=== PATIENT | male | born 1950 | race Caucasian/White ===

== ENCOUNTER 2019-06-29 19:11 | Emergency (ER) | payer MEDICARE ==
[2019-06-29] MEDS ORDERED: methylPREDNISolone SOD SUCCI 125 MG/2 ML VIAL IV STA (19:30)
[2019-06-29] MEDS ORDERED: FAMOTIDINE 20 MG/2 ML VIAL IV STA (19:30)
[2019-06-29 19:43] VITALS: RESP 18
[2019-06-29 20:40] VITALS: BP 128/82; PULSE 73
--- NOTE | 2019-06-29 20:47 | ED ---
Allergic Reaction HPI - General Chief complaint: Allergic Reaction Stated complaint: allergic reaction Time Seen by Provider: 06/29/19 19:15 Source: patient, EMS, RN notes reviewed Mode of arrival: EMS - History of Present Illness Initial Comments: This is a 69-year-old male history of ALLERGIC reaction past who does have an EpiPen states he had the sudden onset tonight of itchy palms and swelling of his tongue and pharynx. He was given IV medication and route by EMS personnel. He states he still feeling somewhat better already no shortness breath no chest pain no other modifying factors at this time is not sure what he was in the came in contact with. Is identical to previous reactions however. He was in the past on lisinopril which was thought to be a source of this reaction is been off of it for one year. MD Complaint: allergic reaction - Related Data Home Medications Medication Instructions Recorded Confirmed Apalutamide [Erleada] 60 mg PO QID 06/29/19 06/29/19 Ascorbic Acid [Vitamin C] 500 mg PO DAILY 06/29/19 06/29/19 Aspirin EC [Ecotrin Low Dose] 81 mg PO DAILY 06/29/19 06/29/19 Atorvastatin [Lipitor] 40 mg PO HS 06/29/19 06/29/19 Eligar Unknown Dose 1 dose SQ Q90D 06/29/19 06/29/19 Finasteride [Proscar] 5 mg PO DAILY 06/29/19 06/29/19 Omeprazole 20 mg PO BID 06/29/19 06/29/19 Oxybutynin Chloride [Ditropan] 5 mg PO TID 06/29/19 06/29/19 Tamsulosin [Flomax] 0.4 mg PO HS 06/29/19 06/29/19 Ubidecarenone [Co Q-10] 100 mg PO DAILY 06/29/19 06/29/19 Zinc 50 mg PO DAILY 06/29/19 06/29/19 amLODIPine [Norvasc] 2.5 mg PO DAILY 06/29/19 06/29/19 metFORMIN HCL 1,000 mg PO BID 06/29/19 06/29/19 Previous Rx's Medication Instructions Recorded Famotidine [Pepcid] 20 mg PO BID #10 tablet 06/29/19 methylPREDNISolone Dose Pack 4 mg PO DIRECTED #21 package 06/29/19 [Medrol Dose Pack] Allergies Allergy/AdvReac Type Severity Reaction Status Date / Time lisinopril Allergy Anaphylaxis Verified 06/29/19 19:42 Review of Systems ROS Statement: Those systems with pertinent positive or pertinent negative responses have been documented in the HPI. ROS Other: All systems not noted in ROS Statement are negative. Past Medical History Past Medical History: Diabetes Mellitus, Hypertension History of Any Multi-Drug Resistant Organisms: None Reported Past Surgical History: Tonsillectomy Past Psychological History: No Psychological Hx Reported Smoking Status: Never smoker Past Alcohol Use History: Occasional Past Drug Use History: None Reported General Exam - General Exam Comments Initial Comments: This is a well-developed well-nourished awake alert oriented 3 male General appearance: alert, anxious Head exam: Present: atraumatic, normocephalic, normal inspection Eye exam: Present: normal appearance, PERRL, EOMI. Absent: scleral icterus, conjunctival injection, periorbital swelling ENT exam: Present: mucous membranes moist, other (Edema noted of the tongue and hyperemia posterior pharynx.) Neck exam: Present: normal inspection, full ROM, other (No stridor JVD or bruits). Absent: tenderness, meningismus, lymphadenopathy Respiratory exam: Present: normal lung sounds bilaterally. Absent: respiratory distress, wheezes, rales, rhonchi, stridor Cardiovascular Exam: Present: regular rate, normal rhythm, normal heart sounds. Absent: systolic murmur, diastolic murmur, rubs, gallop, clicks GI/Abdominal exam: Present: soft, normal bowel sounds. Absent: distended, tenderness, guarding, rebound, rigid Extremities exam: Present: normal inspection, full ROM, normal capillary refill. Absent: tenderness, pedal edema, joint swelling, calf tenderness Back exam: Present: normal inspection Neurological exam: Present: alert, oriented X3, CN II-XII intact Psychiatric exam: Present: normal affect, normal mood Skin exam: Present: warm, dry, intact, normal color. Absent: rash Course Vital Signs 06/29/19 06/29/19 06/29/19 19:11 19:17 19:41 Temperature 97.8 F Pulse Rate 84 75 Respiratory 18 87 H 18 Rate Blood Pressure 148/97 145/95 O2 Sat by Pulse 95 96 Oximetry 06/29/19 20:40 Temperature Pulse Rate 73 Respiratory 18 Rate Blood Pressure 128/82 O2 Sat by Pulse 98 Oximetry - Reevaluation(s) Reevaluation #1: 06/29/19 20:47 Reevaluation the patient reveals he is getting improvement Medical Decision Making - Medical Decision Making Patient is improved and went to be discharged. He will be discharged on appropriate medication he does have a functional and up-to-date EpiPen. We placed on appropriate medication is a follow-up with his doctor and return when necessary Disposition Clinical Impression: Allergic reaction Disposition: HOME SELF-CARE Condition: Good Instructions (If sedation given, give patient instructions): General Allergic Reaction (ED) Prescriptions: methylPREDNISolone Dose Pack [Medrol Dose Pack] 4 mg PO DIRECTED #21 package Famotidine [Pepcid] 20 mg PO BID #10 tablet Is patient prescribed a controlled substance at d/c from ED?: No Referrals: Nonstaff,Physician [Primary Care Provider] - 1-2 days
[2019-06-29 21:06] VITALS: TEMP 98
== END 2019-06-29 21:11 | disposition home or self-care (01) ==
LOC: EC 19:11
DX: T78.40XA Allergy, unspecified, initial encounter (principal); E11.9 Type 2 diabetes mellitus without complications; I10 Essential (primary) hypertension; Z88.8 Allergy status to other drugs, medicaments and biological substances; Z79.82 Long term (current) use of aspirin; Z79.84 Long term (current) use of oral hypoglycemic drugs; Z79.899 Other long term (current) drug therapy; Z90.89 Acquired absence of other organs
CPT/HCPCS: 99285; 96374; 96375; J2930